=== PATIENT | female | born 1965 | race Caucasian/White ===

== ENCOUNTER 2020-06-30 11:34 | Outpatient (CLI) | payer BC | END 2020-06-30 11:35 | disposition home or self-care (01) | LOC: CSHMAMMO 11:34 | PROVIDERS: ATTEND Family Medicine | DX: Z12.31 Encounter for screening mammogram for malignant neoplasm of breast (principal) | CPT/HCPCS: 77063; 77067 ==

== ENCOUNTER 2024-05-10 05:32 | Day surgery (SDC) | payer OTHER ==
[2024-04-30 13:50] VITALS: BMI 37.9
[2024-05-10] MEDS ORDERED: Lidocaine 1% PF 5 ML VIAL ONE (07:44)
[2024-05-10] MEDS ORDERED: PROPOFOL 40 ML ONE (07:44)
== END 2024-05-10 09:35 | disposition home or self-care (01) ==
LOC: CSHSDC 05:32
PROVIDERS: ATTEND Surgery
PROC: 0DBH8ZX Excision of Cecum, Via Natural or Artificial Opening Endoscopic, Diagnostic (ICD-10-PCS; principal; 2024-05-10)
DX: Z12.11 Encounter for screening for malignant neoplasm of colon (principal); D12.0 Benign neoplasm of cecum; K57.30 Diverticulosis of large intestine without perforation or abscess without bleeding; K21.9 Gastro-esophageal reflux disease without esophagitis; I10 Essential (primary) hypertension; G43.909 Migraine, unspecified, not intractable, without status migrainosus; Z80.0 Family history of malignant neoplasm of digestive organs; Z87.59 Personal history of other complications of pregnancy, childbirth and the puerperium; Z90.710 Acquired absence of both cervix and uterus; Z79.51 Long term (current) use of inhaled steroids; Z79.899 Other long term (current) drug therapy
CPT/HCPCS: 88305; J2704

== ENCOUNTER 2024-11-15 14:57 | Outpatient (CLI) | payer OTHER | END 2024-11-15 14:58 | disposition home or self-care (01) | LOC: CSHMAMMO 14:57 | PROVIDERS: ATTEND Family Medicine | DX: Z12.31 Encounter for screening mammogram for malignant neoplasm of breast (principal) | CPT/HCPCS: 77063; 77067 ==

== ENCOUNTER 2025-03-14 15:30 | Inpatient (IN) | payer OTHER ==
[2025-03-14 15:09] VITALS: BMI 34.5
[2025-03-21] MEDS ORDERED: Phenylephrine 40 MG/NS 250 ML 250 ML ONE (06:54)
[2025-03-21] MEDS ORDERED: Bupivacaine/Epinephrine 0.25% 30 ML VIAL ONE (06:58)
[2025-03-21] MEDS ORDERED: PROPOFOL 20 ML ONE ×2 (07:01→08:57)
[2025-03-21] MEDS ORDERED: Rocuronium Bromide 10 MG/ML (10ML VIAL) ONE (07:02)
[2025-03-21] MEDS ORDERED: Lidocaine 4% PF 5 ML AMP ONE (07:03)
[2025-03-21] MEDS ORDERED: CEFAZOLIN 2 GM VIAL ONE (07:11)
[2025-03-21] MEDS ORDERED: SUGAMMADEX SODIUM 200 MG/2 ML VIAL ONE (08:46)
[2025-03-21] MEDS ORDERED: diphenhydrAMINE 50 MG/ML VIAL ONE (09:06)
[2025-03-21] MEDS ORDERED: Glucagon 1 MG/ML KIT IM PRN (09:28)
[2025-03-21] MEDS ORDERED: diphenhydrAMINE 50 MG/ML VIAL IVP PRN (09:28)
[2025-03-21] MEDS ORDERED: Ondansetron PF 4 MG/2 ML Vial IVP PRN (09:28)
[2025-03-21] MEDS ORDERED: Dextrose 50% Abboject 50 ML SYRINGE SLOW IVP PRN (09:28)
[2025-03-21] MEDS ORDERED: hydrALAZINE 20 MG/ML VIAL SLOW IVP PRN (09:28)
[2025-03-21] MEDS ORDERED: HYDROcodone/Acetaminophen 5/325 mg Tablet ONE (11:51)
[2025-03-21] MEDS: Ketorolac Tromethamine 30 MG (1 mL) VIAL IVP SCH (14:13)
[2025-03-21] MEDS: D5 1/2 NS w/20 mEq KCL 1,000 ML IV SCH (14:27)
[2025-03-21] MEDS: Hydrocodone-Acetamin 15 ML UDCUP PO PRN (16:45)
[2025-03-22] MEDS: Enoxaparin 40 MG (0.4 mL) SYRINGE SC SCH (08:16)
[2025-03-22] MEDS: Pantoprazole 40 MG VIAL IVP SCH (08:16)
[2025-03-22 08:29] VITALS: BP 108/74; TEMP 97.8
== END 2025-03-22 10:44 | disposition home or self-care (01) | DRG 328 ==
LOC: CSHTELE 03-21 06:03
PROVIDERS: ADMIT Surgery; ATTEND Surgery
PROC: 0BQT4ZZ Repair Diaphragm, Percutaneous Endoscopic Approach (ICD-10-PCS; principal; 2025-03-21)
PROC: 8E0W4CZ Robotic Assisted Procedure of Trunk Region, Percutaneous Endoscopic Approach (ICD-10-PCS; 2025-03-21)
DX: K21.9 Gastro-esophageal reflux disease without esophagitis (principal); K44.9 Diaphragmatic hernia without obstruction or gangrene
CPT/HCPCS: 94760; J1100; J1200; J1650; J1885; J2003; J2470; J2704; J3010; J3480; S2900